=== PATIENT | female | born 1950 | race Hispanic/Latino ===

== ENCOUNTER 2025-03-28 06:47 | Inpatient (IN) | payer OTHER ==
[2025-03-23 12:28] LABS: BASOPHILS % 0.3 % (0.0-1.0); EOSINOPHILS % 0.8 % (0.0-6.0); LYMPHOCYTES % 17.8 % (18.0-39.1); MONOCYTES % 10.5 % (4.4-11.3); NEUTROPHILS % 70.4 % (38.7-80.0); RED CELL DISTRIBUTION WIDTH 12.7 % (11.7-14.4)
[~2025-03-28] VITALS: Ht 152.4 cm; Wt 67.1 kg
[2025-03-28] VITALS (13 sets, daily range): BP systolic 88–102; BP diastolic 51–66; PULSE 66–107; RESP 16–19; TEMP 97–97.9; O2SAT 93–100
[~2025-03-28 06:47] MED LIST: AMLODIPINE BESY10 MG PO; BISOPROLOL FUMAR5 MG PO; DICLOFENAC PO; HYDROCHLOROTHIA25 MG PO; LEXAPRO20 MG PO; LOSARTAN POTAS100 MG PO; TYLENOL325 MG PO; VITAMIN C1000 MG PO; XANAX1 MG PO
[2025-03-28] MEDS ORDERED: ROPIVACAINE/EPI/CLONIDINE/KET 50 ML SYRINGE INJ ONE (08:00)
[2025-03-28] MEDS ORDERED: FAMOTIDINE 20 MG/2 ML VIAL IV ONE (08:10)
[2025-03-28] MEDS ORDERED: LIDOCAINE HCL 2% LOCAL INJ 5 ML SDV VIAL INJ ONE (08:10)
[2025-03-28] MEDS ORDERED: FENTANYL CITRATE/PF 100MCG/2 ML INJ ONE ×2 (08:10→10:24)
[2025-03-28] MEDS ORDERED: PROPOFOL IV EMULSION 10 MG/ML 20 ML VIAL ONE (08:10)
[2025-03-28] MEDS ORDERED: ACETAMINOPHEN 1000 MG/100 ML 100 ML IV ONE (08:10)
[2025-03-28] MEDS ORDERED: KETAMINE HCL INJ 50 MG/ML 10 ML VIAL ONE (09:10)
[2025-03-28] MEDS ORDERED: DEXAMETHASONE SOD PHOS INJ 4 MG/ML SDV ONE (09:13)
[2025-03-28] MEDS ORDERED: ONDANSETRON HCL INJ 2MG/ML 2ML 2 MG/ML VIAL ONE (09:13)
[2025-03-28] MEDS ORDERED: PHENYLEPHRINE HCL 1% 10 MG/ML VIAL ONE ×2 (09:23→12:44)
[2025-03-28] MEDS ORDERED: EPHEDRINE SULFATE INJ 50 MG/ML VIAL ONE (12:44)
[2025-03-28] MEDS ORDERED: DIPHENHYDRAMINE HCL INJ 50 MG/ML VIAL IV PRN (14:15)
[2025-03-28] MEDS ORDERED: ACETAMINOPHEN 650 MG SUPP PR PRN (14:15)
[2025-03-28] MEDS ORDERED: SEVOFLURANE INHAL SOLN 250 ML PEN BTL ONE (14:31)
[2025-03-28] MEDS: SODIUM CHLORIDE 0.9% 1000ML 1,000 ML IV ONE (15:10)
[2025-03-28 15:30] LABS: BASOPHILS % 0.1 % (0.0-1.0); EOSINOPHILS % 0.0 % (0.0-6.0); LYMPHOCYTES % 2.4 % (18.0-39.1); MONOCYTES % 2.8 % (4.4-11.3); NEUTROPHILS % 94.1 % (38.7-80.0); RED CELL DISTRIBUTION WIDTH 12.7 % (11.7-14.4)
[2025-03-28] MEDS: SODIUM CHLORIDE 0.9% 1000ML 1,000 ML IV SCH (15:55)
[2025-03-28] MEDS: HYDROCODONE/APAP 7.5MG-325MG 1 EA TAB PO PRN (17:14)
[2025-03-28] MEDS: CELECOXIB 200 MG CAP PO SCH (17:14)
[2025-03-28] MEDS: ASPIRIN 325 MG TAB PO SCH (21:07)
[2025-03-28] MEDS: HYDROCODONE/APAP 5MG-325MG TAB PO PRN (21:16)
[2025-03-29] VITALS (9 sets, daily range): BP systolic 99–123; BP diastolic 60–65; PULSE 53–91; RESP 16–18; TEMP 97.9–98.7; O2SAT 93–100
[2025-03-29 08:24] LABS: EST GLOMERULAR FILTRATION RATE 92.0 ML/MIN (>=60)
[2025-03-29] MEDS ORDERED: SODIUM CHLORIDE 0.9% 100 ML ONE (08:54)
[2025-03-29] MEDS ORDERED: IOPAMIDOL 370 MG/ML 100 ML INFUS..BTL INJ ONE (08:54)
[2025-03-29] MEDS: DOCUSATE SODIUM 100 MG CAP PO PRN (09:06)
[2025-03-29] MEDS: ESCITALOPRAM OXALATE 10 MG TAB PO SCH (09:06)
[2025-03-29] MEDS: POTASSIUM CHLORIDE 20 MEQ TAB CR PO ONE (12:13)
[2025-03-29] MEDS ORDERED: ACETAMINOPHEN 1000 MG/100 ML IV PRN (14:15)
[2025-03-30] VITALS (11 sets, daily range): BP systolic 110–136; BP diastolic 63–74; PULSE 68–97; RESP 18–20; TEMP 98.1–98.7; O2SAT 94–99
[2025-03-30] MEDS: ALPRAZOLAM 0.5 MG TAB PO PRN (05:53)
[2025-03-30] MEDS: LOPERAMIDE HCL 2 MG CAP PO PRN (05:53)
[2025-03-30 06:16] LABS: BASOPHILS % 0.1 % (0.0-1.0); EOSINOPHILS % 0.1 % (0.0-6.0); LYMPHOCYTES % 13.3 % (18.0-39.1); MONOCYTES % 11.2 % (4.4-11.3); NEUTROPHILS % 74.3 % (38.7-80.0); RED CELL DISTRIBUTION WIDTH 13.0 % (11.7-14.4)
[2025-03-30 06:52] LABS: EST GLOMERULAR FILTRATION RATE 96.0 ML/MIN (>=60)
[2025-03-30] MEDS: DICYCLOMINE HCL 10 MG CAP PO SCH (09:25)
[2025-03-30] MEDS: ONDANSETRON HCL INJ 2MG/ML 2ML 2 MG/ML VIAL IV PRN (10:40)
[2025-03-30] MEDS: LACTATED RINGER'S 1,000 ML ONE (10:43)
[2025-03-30] MEDS: PANTOPRAZOLE SODIUM 20 MG TABLET.DR PO SCH (14:00)
[2025-03-30] MEDS ORDERED: SODIUM CHLORIDE 0.9% 250ML 250 ML IV PRN (20:15)
[2025-03-30] MEDS: CEFAZOLIN SODIUM 0 GM ONE (21:26)
[2025-03-30] MEDS: CELECOXIB 200 MG CAP ONE (21:26)
[2025-03-30] MEDS: DEXAMETHASONE SOD PHOS 10 MG/1 ML VIAL ONE (21:26)
[2025-03-30] MEDS: GABAPENTIN 300 MG CAP ONE (21:26)
[2025-03-30] MEDS: SODIUM CHLORIDE 0.9% 250ML 250 ML IV ONE (21:27)
[2025-03-30] MEDS: CEFAZOLIN SODIUM 2 GM ONE (21:27)
[2025-03-31] VITALS (12 sets, daily range): BP systolic 110–142; BP diastolic 60–80; PULSE 74–101; RESP 16–20; TEMP 97.7–99; O2SAT 93–97
[2025-03-31] MEDS: SODIUM CHLORIDE 0.9% 250ML 250 ML ONE (02:42)
[2025-03-31 10:20] LABS: BASOPHILS % 0.1 % (0.0-1.0); EOSINOPHILS % 0.0 % (0.0-6.0); LYMPHOCYTES % 7.8 % (18.0-39.1); MONOCYTES % 8.0 % (4.4-11.3); NEUTROPHILS % 83.3 % (38.7-80.0); RED CELL DISTRIBUTION WIDTH 14.0 % (11.7-14.4)
[2025-03-31] MEDS ORDERED: LIDOCAINE HCL 2% LOCAL INJ 5 ML SDV VIAL INJ ONE (10:56)
[2025-03-31] MEDS ORDERED: PROPOFOL IV EMULSION 10 MG/ML 20 ML VIAL ONE (10:56)
[2025-03-31] MEDS ORDERED: FENTANYL CITRATE/PF 100MCG/2 ML INJ ONE (10:59)
[2025-03-31] MEDS ORDERED: ROCURONIUM BROMIDE 1 ML IV ONE ×2 (11:03→13:37)
[2025-03-31] MEDS ORDERED: ROPIVACAINE/EPI/CLONIDINE/KET 50 ML SYRINGE INJ ONE (11:27)
[2025-03-31] MEDS ORDERED: SODIUM CHLORIDE 0.9% 100 ML ONE (12:20)
[2025-03-31] MEDS ORDERED: ONDANSETRON HCL INJ 2MG/ML 2ML 2 MG/ML VIAL ONE (12:55)
[2025-03-31] MEDS ORDERED: DEXAMETHASONE SOD PHOS INJ 4 MG/ML SDV ONE (12:55)
[2025-03-31] MEDS ORDERED: SUGAMMADEX SODIUM 200 MG/2 ML VIAL IV ONE (13:48)
[2025-03-31] MEDS ORDERED: ACETAMINOPHEN 1000 MG/100 ML 100 ML IV ONE (13:52)
[2025-03-31] MEDS ORDERED: DIPHENHYDRAMINE HCL INJ 50 MG/ML VIAL IV PRN (14:00)
[2025-03-31] MEDS: SODIUM CHLORIDE 0.9% 1000ML 1,000 ML IV SCH (14:00)
[2025-03-31] MEDS ORDERED: DOCUSATE SODIUM 100 MG CAP PO PRN (14:00)
[2025-03-31] MEDS: HYDROCODONE/APAP 7.5MG-325MG 1 EA TAB PO PRN (15:15)
[2025-03-31] MEDS: ASPIRIN 325 MG TAB PO SCH (16:07)
[2025-03-31] MEDS ORDERED: CELECOXIB 200 MG CAP PO SCH (17:00)
[2025-04-01] VITALS (15 sets, daily range): BP systolic 121–145; BP diastolic 62–78; PULSE 72–91; RESP 16–20; TEMP 97.3–99.4; O2SAT 93–100
[2025-04-01 06:26] LABS: BASOPHILS % 0.1 % (0.0-1.0); EOSINOPHILS % 0.0 % (0.0-6.0); LYMPHOCYTES % 5.0 % (18.0-39.1); MONOCYTES % 5.9 % (4.4-11.3); NEUTROPHILS % 88.1 % (38.7-80.0); RED CELL DISTRIBUTION WIDTH 13.9 % (11.7-14.4)
[2025-04-01 07:01] LABS: EST GLOMERULAR FILTRATION RATE 97.0 ML/MIN (>=60)
[2025-04-01] MEDS: ONDANSETRON HCL INJ 2MG/ML 2ML 2 MG/ML VIAL IV PRN (08:49)
[2025-04-01] MEDS: SODIUM CHLORIDE 0.9% 250ML 250 ML IV ONE (13:23)
[2025-04-01] MEDS ORDERED: ACETAMINOPHEN 1000 MG/100 ML IV PRN (14:00)
[2025-04-02] VITALS (10 sets, daily range): BP systolic 128–142; BP diastolic 70–87; PULSE 74–88; RESP 17–20; TEMP 97.9–98.9; O2SAT 95–99
[2025-04-02 06:43] LABS: EST GLOMERULAR FILTRATION RATE 98.0 ML/MIN (>=60)
[2025-04-02 06:56] LABS: BASOPHILS % 0.1 % (0.0-1.0); EOSINOPHILS % 0.1 % (0.0-6.0); LYMPHOCYTES % 10.9 % (18.0-39.1); MONOCYTES % 10.1 % (4.4-11.3); NEUTROPHILS % 77.8 % (38.7-80.0); RED CELL DISTRIBUTION WIDTH 14.2 % (11.7-14.4)
[2025-04-02] MEDS: HYDROCODONE/APAP 5MG-325MG TAB PO PRN (07:40)
[2025-04-02] MEDS: BUSPIRONE HCL 5 MG TAB PO SCH (09:21)
[2025-04-03] VITALS (8 sets, daily range): BP systolic 126–150; BP diastolic 76–95; PULSE 76–98; RESP 17–21; TEMP 97.7–98.9; O2SAT 94–99
[2025-04-03] MEDS: FUROSEMIDE INJ 10 MG/ML 2 ML VIAL IV ONE (13:52)
[2025-04-04] VITALS (7 sets, daily range): BP systolic 113–135; BP diastolic 67–81; PULSE 71–93; RESP 17–18; TEMP 98–98.3; O2SAT 93–100
[2025-04-04] MEDS: BUSPIRONE HCL 5 MG TAB PO SCH (08:28)
[2025-04-04] MEDS: CHOLESTYRAMINE 4 GM PACKET PO SCH (18:06)
[2025-04-05] VITALS (8 sets, daily range): BP systolic 110–135; BP diastolic 66–97; PULSE 75–96; RESP 17–19; TEMP 97.3–98; O2SAT 97–100
[2025-04-05 01:37] LABS: CDIFF AG QUIK CHEK NEGATIVE (NEGATIVE); CDIFF TOX QUIK CHEK NEGATIVE (NEGATIVE)
== END 2025-04-05 17:38 | DRG 467 ==
LOC: OR 06:47 → PACU V 14:04 → MED/SURG2 14:30
PROVIDERS: ADMIT Specialist; ATTEND Specialist
PROC: 0QU50JZ Supplement Left Acetabulum with Synthetic Substitute, Open Approach (ICD-10-PCS; 2025-03-28)
PROC: 0SRB04Z Replacement of Left Hip Joint with Ceramic on Polyethylene Synthetic Substitute, Open Approach (ICD-10-PCS; principal; 2025-03-28 08:48)
PROC: 0SPB09Z Removal of Liner from Left Hip Joint, Open Approach (ICD-10-PCS; 2025-03-31)
PROC: 0SWB08Z Revision of Spacer in Left Hip Joint, Open Approach (ICD-10-PCS; 2025-03-31)
PROC: 0QS704Z Reposition Left Upper Femur with Internal Fixation Device, Open Approach (ICD-10-PCS; 2025-03-31)
PROC: 0SUE09Z Supplement Left Hip Joint, Acetabular Surface with Liner, Open Approach (ICD-10-PCS; 2025-03-31)
PROC: 30233N1 Transfusion of Nonautologous Red Blood Cells into Peripheral Vein, Percutaneous Approach (ICD-10-PCS; 2025-03-31)
DX: M16.12 Unilateral primary osteoarthritis, left hip (principal); D62 Acute posthemorrhagic anemia; T84.125A Displacement of internal fixation device of left femur, initial encounter; T84.031A Mechanical loosening of internal left hip prosthetic joint, initial encounter; T84.021A Dislocation of internal left hip prosthesis, initial encounter; I95.9 Hypotension, unspecified; J45.909 Unspecified asthma, uncomplicated; K21.9 Gastro-esophageal reflux disease without esophagitis; I10 Essential (primary) hypertension; F41.9 Anxiety disorder, unspecified; E87.6 Hypokalemia; R19.7 Diarrhea, unspecified; D72.829 Elevated white blood cell count, unspecified; M85.9 Disorder of bone density and structure, unspecified; W18.30XA Fall on same level, unspecified, initial encounter; Y92.239 Unspecified place in hospital as the place of occurrence of the external cause
CPT/HCPCS: 36415; 71046; 72170; 72191; 76000; 80048; 80053; 82948; 85014; 85018; 85025; 86850; 86900; 86920; 87324; 87449; 94799; C1713; C1776; J0690; J1100; J1308; J1938; J2003; J2371; J2405; J7030; J7050; P9016; Q9967